=== PATIENT | female | born 1970 | race Caucasian/White ===

== ENCOUNTER 2017-08-05 10:51 | Emergency (ER) | payer SELFPAY ==
--- OUTSIDE RECORDS SUMMARY | 2017-08-05 10:53 | XMS REPORT ---
:1970 Author [facility] Address [address] [place] [address] Care Team Providers Name Role Phone CAMRON NICHOLE Unavailable Unavailable Problems This patient has no known problems. Allergies, Adverse Reactions, Alerts This patient has no known allergies or adverse reactions. Medications This patient has no known medications. Results Test Description Test Time Test Comments Text Results Atomic Results Result Comments POCT-GLUCOSE METER 2016-10-10 17:56:00 Test Item Value Reference Range Comments POC-GLUCOSE METER (BEAKER) (test 110 mg/dL 70-110 TESTED AT [address] otrr=4630) [facility] [address] POCT-GLUCOSE [id number] 11:14:00 Test Item Value Reference Range Comments POC-GLUCOSE METER (BEAKER) 113 mg/dL 70-110 TESTED AT [address] (test uclg=5322) [facility] [address] POCT-GLUCOSE [id number] 07:23:00 Test Item Value Reference Range Comments POC-GLUCOSE METER (BEAKER) 120 mg/dL 70-110 TESTED AT [address] (test qtmh=1115) [facility] [address] POCT-GLUCOSE [id number] 21:57:00 Test Item Value Reference Range Comments POC-GLUCOSE METER (BEAKER) 209 mg/dL 70-110 TESTED AT [address] (test sjby=0733) [facility] [address] POCT-GLUCOSE [id number] 17:08:00 Test Item Value Reference Range Comments POC-GLUCOSE METER (BEAKER) 282 mg/dL 70-110 TESTED AT [address] (test mqts=7886) [facility] [address] POCT-GLUCOSE [id number] 13:22:00 Test Item Value Reference Range Comments POC-GLUCOSE METER (BEAKER) 279 mg/dL 70-110 TESTED AT [address] (test efyv=3439) [facility] [address] HEMOGLOBIN [id number] 11:00:00 Test Item Value Reference Range Comments HEMOGLOBIN A1C (BINA) (test dnmy=492) 11.4 % 4.3-6.1 POCT-GLUCOSE [id number] 07:37:00 Test Item Value Reference Range Comments POC-GLUCOSE METER ([facility]) 216 mg/dL 70-110 TESTED AT [address] (test bvcg=3555) [facility] [address] CREATINE KINASE (CK), TOTAL AND [id number] 05:54:00 Test Item Value Reference Range Comments CREATINE KINASE TOTAL ([facility]) (test tnge=004) 54 U/L 29-200 CREATINE KINASE-MB ([facility]) (test nswk=860) 0.7 ng/mL 0.0-6.6 CREATINE KINASE-MB INDEX ([facility]) (test fpng=095) 1.3 % Effective 03/16/2014: CK-MB Reference Range ChangeNew: 0.0-6.6 Previous: 0.0- 4.9CK-MB Reference Range:<6.7 Normal6.7-10.0 Borderline>10.0 AbnormalTROPONIN [id number] 05:52:00 Test Item Value Reference Range Comments TROPONIN I ([facility]) (test ijos=094) < ng/mL 0.00-0.03 Effective 03/16/2014: Reference Range ChangeNew: 0.00-0.03 Previous 0.00- 0.15Troponin I (TnI) levels must be interpreted in the context of the presenting symptoms and the clinical findings. Elevated TnI levels indicate myocardial damage, but are not specific for ischemic heart disease. Elevated TnI levels are seen in patients with other cardiac conditions (including myocarditis and congestive heartfailure), and slight TnI elevations occur in patients with other conditions, including sepsis, renalfailure, acidosis, acute neurological disease, and persistent tachyarrhythmia.TSH/FREE T4 IF [id number] 02:58:00 Test Item Value Reference Range Comments THYROID STIMULATING HORMONE ([facility]) (test 2.72 uIU/mL 0.35-4.94 zwtn=577) CBC W/PLT COUNT & AUTO [id number] 00:57:00 Test Item Value Reference Range Comments WHITE BLOOD CELL COUNT (BEAKER) (test anqx=857) 6.4 K/ L 4.0-10.0 RED BLOOD CELL COUNT (BEAKER) (test msix=235) 4.29 M/ L 4.00-5.00 HEMOGLOBIN (BEAKER) (test dldw=759) 13.1 GM/DL 12.0-15.0 HEMATOCRIT (BEAKER) (test ylma=051) 38.9 % 36.0-45.0 MEAN CORPUSCULAR VOLUME (BEAKER) (test weby=865) 90.6 fL 82.0-99.0 MEAN CORPUSCULAR HEMOGLOBIN (BEAKER) (test 30.6 pg 27.0-33.0 czly=054) MEAN CORPUSCULAR HEMOGLOBIN CONC (BEAKER) (test 33.8 GM/DL 32.0-36.0 wplh=672) RED CELL DISTRIBUTION WIDTH (BEAKER) (test 12.1 % 10.3-14.2 wxjc=355) PLATELET COUNT (BEAKER) (test qbsd=140) 158 K/CU MM 150-430 MEAN PLATELET VOLUME (BEAKER) (test cinr=635) 9.3 fL 6.5-10.5 NUCLEATED RED BLOOD CELLS (BEAKER) (test 0 /100 WBC 0-0 ugbz=106) NEUTROPHILS RELATIVE PERCENT (BEAKER) (test 50 % oukr=634) LYMPHOCYTES RELATIVE PERCENT (BEAKER) (test 38 % zxly=527) MONOCYTES RELATIVE PERCENT (BEAKER) (test 7 % wrpc=065) EOSINOPHILS RELATIVE PERCENT (BEAKER) (test 5 % yylp=963) BASOPHILS RELATIVE PERCENT (BEAKER) (test 1 % mwxs=649) NEUTROPHILS ABSOLUTE COUNT (BEAKER) (test 3.18 K/ L 1.80-8.00 soqg=971) LYMPHOCYTES ABSOLUTE COUNT (BEAKER) (test 2.42 K/ L 1.48-4.50 gsnu=275) MONOCYTES ABSOLUTE COUNT (BEAKER) (test 0.46 K/ L 0.00-1.30 efov=723) EOSINOPHILS ABSOLUTE COUNT (BEAKER) (test 0.32 K/ L 0.00-0.50 lrin=871) BASOPHILS ABSOLUTE COUNT (BEAKER) (test 0.04 K/ L 0.00-0.20 whiy=151) 0.000.700.000.000.000.000.000.000.000.000.000.000.000.000.000.000.000.00COMPREHE NSIVE METABOLIC [id number] 00:55:00 Test Item Value Reference Range Comments TOTAL PROTEIN (BEAKER) 5.8 gm/dL 6.0-8.3 (test atpw=005) ALBUMIN (BEAKER) (test 3.4 g/dL 3.5-5.0 xgev=4466) ALKALINE PHOSPHATASE 76 U/L 40-150 (BEAKER) (test wawc=067) BILIRUBIN TOTAL (BEAKER) 0.4 mg/dL 0.2-1.2 (test joil=544) SODIUM (BEAKER) (test 140 meq/L 136-145 voma=781) POTASSIUM (BEAKER) (test 4.0 meq/L 3.5-5.1 roou=706) CHLORIDE (BEAKER) (test 104 meq/L 98-107 zqgy=480) CO2 (BEAKER) (test 28 meq/L 22-29 qegl=281) BLOOD UREA NITROGEN 16 mg/dL 7-21 (BEAKER) (test gayv=599) CREATININE (BEAKER) (test 0.82 mg/dL 0.57-1.25 qksh=993) GLUCOSE RANDOM (BEAKER) 287 mg/dL 70-105 (test yvce=284) CALCIUM (BEAKER) (test 8.2 mg/dL 8.4-10.2 jgdh=724) AST (SGOT) (BEAKER) (test 5 U/L 5-34 ydni=513) ALT (SGPT) (BEAKER) (test 163 U/L 6-55 wcyy=578) EGFR (BEAKER) (test 75 mL/min/1.73 sq m ESTIMATED GFR IS NOT nqki=0195) ACCURATE CREATININE CLEARANCE IN PREDICTING GLOMERULAR FILTRATION RATE. ESTIMATED GFR IS NOT APPLICABLE FOR DIALYSIS PATIENTS. CREATINE KINASE (CK), TOTAL AND [id number] 00:50:00 Test Item Value Reference Range Comments CREATINE KINASE TOTAL (BEAKER) (test xbum=079) 67 U/L 29-200 CREATINE KINASE-MB (BEAKER) (test stor=449) 0.9 ng/mL 0.0-6.6 CREATINE KINASE-MB INDEX (BEAKER) (test btli=394) 1.3 % Effective 03/16/2014: CK-MB Reference Range ChangeNew: 0.0-6.6 Previous: 0.0- 4.9CK-MB Reference Range:<6.7 Normal6.7-10.0 Borderline>10.0 AbnormalTROPONIN [id number] 00:50:00 Test Item Value Reference Range Comments TROPONIN I (BEAKER) (test ssiw=909) < ng/mL 0.00-0.03 Effective 03/16/2014: Reference Range ChangeNew: 0.00-0.03 Previous 0.00- 0.15Troponin I (TnI) levels must be interpreted in the context of the presenting symptoms and the clinical findings. Elevated TnI levels indicate myocardial damage, but are not specific for ischemic heart disease. Elevated TnI levels are seen in patients with other cardiac conditions (including myocarditis and congestive heartfailure), and slight TnI elevations occur in patients with other conditions, including sepsis, renalfailure, acidosis, acute neurological disease, and persistent tachyarrhythmia.B-TYPE NATRIURETIC FACTOR ( BNP)2016-10-09 00:45:00 Test Item Value Reference Range Comments B-TYPE NATRIURETIC PEPTIDE (BEAKER) (test raie=666) 97 pg/mL 0-100 [id number] 00:42:00 Test Item Value Reference Range Comments PHOSPHORUS (BEAKER) (test xrwg=550) 4.1 mg/dL 2.3-4.7 [id number] 00:42:00 Test Item Value Reference Range Comments MAGNESIUM (BEAKER) (test ibck=102) 1.8 mg/dL 1.6-2.6 LIPID [id number] 00:42:00 Test Item Value Reference Range Comments TRIGLYCERIDES (BEAKER) (test spcl=987) 165 mg/dL CHOLESTEROL (BEAKER) (test lxpu=995) 172 mg/dL HDL CHOLESTEROL (BEAKER) (test ttnc=463) 48 mg/dL LDL CHOLESTEROL CALCULATED (BEAKER) (test 91 mg/dL naxc=777) Triglyceride Reference Range: Low Risk <150 Borderline 150- 199 High Risk 200-499 Very High Risk >=500Cholesterol Reference Range: Low Risk <200 Borderline 200-239 High Risk > 240HDL Cholesterol Reference Range: Low Risk >=60 High Risk <40LDL Cholesterol Reference Range: Optimal <100 Near Optimal 100-129 Borderline 130-159 High 160-189 Very High >=190POCT-GLUCOSE [id number] 00:01:00 Test Item Value Reference Range Comments POC-GLUCOSE METER (BEAKER) 273 mg/dL 70-110 TESTED AT [address] (test wqnr=5909) [facility] [id number]
--- OUTSIDE RECORDS SUMMARY | 2017-08-05 10:53 | XMS REPORT | Clinical Summary ---
:1970 Author Organization [facility] Address [address] [place] [address] Phone Care Team Providers Name Role Phone Unavailable Primary Care Provider Unavailable Allergies Active Allergy Reactions Severity Noted Date Comments Cephalexin Anaphylaxis High 10/08/2016 THROAT SWOLLEN Penicillins Other (See Comments) High 10/08/2016 QUIT BREATHING Adhesive Rash Low 10/08/2016 REDNESS, BASS Current Medications Prescription Sig. Disp. Refills Start Date End Date Status buPROPion (WELLBUTRIN Take 150 mg by mouth 2 Active SR) 150 MG 12 hr (two) times daily. tablet nitroglycerin Place 0.4 mg under the Active (NITROSTAT) 0.4 MG SL tongue every 5 (five) tablet minutes as needed for Chest pain Put 1 pill under tongue every 5min as needed for chest pain.No more than 3 doses in 15min.Call 911 if pain is unrelieved 5min after 1st dose . gabapentin (NEURONTIN) Take 100 mg by mouth 3 Active 100 MG capsule (three) times daily. metoprolol (LOPRESSOR) Take 50 mg by mouth 2 Active 50 MG tablet (two) times daily. losartan (COZAAR) 50 Take 50 mg by mouth Active MG tablet daily Patient takes 1 and 1/2 tab daily . isosorbide mononitrate Take 30 mg by mouth Active (IMDUR) 30 MG 24 hr daily. tablet insulin glargine Inject 60 Units Active (LANTUS) 100 unit/mL subcutaneously 2 (two) injection times daily Use as directed . INSULIN LISPRO Inject subcutaneously. Active (HUMALOG SUBQ) aspirin 81 MG EC Take 81 mg by mouth Active tablet daily. Active Problems Problem Noted Date Chest pain 10/08/2016 Type 2 diabetes mellitus with diabetic neuropathy, with long-term current 03/2017 use of insulin (HCC) Essential hypertension 10/08/2016 H/O tobacco use, presenting hazards to health 10/08/2016 Morbid obesity (HCC) 10/08/2016 Encounters Date Type Specialty Care Team Description 10/08/2016 - Hospital Encounter Cardiology [place], Chest pain, 10/10/2016 MD Josh unspecified Jaylyn, type;Essential MD Darnell hypertension;H/O Geno Ratliff tobacco use, MD Kristian presenting hazards to health;Morbid obesity, unspecified obesity type (HCC);Type 2 diabetes mellitus with diabetic neuropathy, with long-term current use of insulin (HCC) 10/08/2016 Orders Only General Internal Medicine after 08/04/2016 Family History Medical History Relation Name Comments Arthritis Father Heart disease Father Hypertension Father Kidney disease Father Cancer Maternal Aunt Cancer Maternal Uncle Arthritis Mother Diabetes Mother Heart disease Mother Hypertension Mother Relation Name Status Comments Father Maternal Aunt Maternal Uncle Mother Social History Tobacco Use Types Packs/Day Years Used Date Former Smoker 1 1 Alcohol Use Drinks/Week oz/Week Comments No Sex Assigned at Date Recorded Not on file Last Filed Vital Signs Vital Sign Reading Time Taken Blood Pressure 147/72 10/10/2016 3:18 PM CDT Pulse 65 10/10/2016 3:18 PM CDT Temperature 36.7 C (98.1 F) 10/10/2016 3:18 PM CDT Respiratory Rate 20 10/10/2016 3:18 PM CDT Oxygen Saturation 97% 10/10/2016 3:18 PM CDT Inhaled Oxygen Concentration - - Weight 136.7 kg (301 lb 6.4 oz) 10/10/2016 7:13 AM CDT Height 162.6 cm (5' 4") 10/08/2016 9:21 PM CDT Body Mass Index 51.74 10/10/2016 7:13 AM CDT Plan of Treatment Not on file Results EKG-SCANNED (10/11/2016 2:41 PM)RHYTHM STRIP - SCAN (10/11/2016 2:41 PM)POC- Glucose meter (10/10/2016 5:54 PM)Only the most recent of8 resultswithin the time period is included. Component Value Ref Range POC-Glucose Meter 110Comment: TESTED AT [address] 70 - 110 mg/dL [address] Specimen Performing Laboratory Blood [facility] [address] [address] [place] myocardial perfusion SPECT, pharm(Lexiscan) (10/10/2016 12:57 PM) Specimen Performing Laboratory [facility] Narrative FINAL REPORT PROCEDURE:2-Day Stress/Rest MYOCARDIAL PERFUSION SPECT with regadenoson\\XA9\\ CPT CODE:85423 INDICATION:Chest Pain HISTORY:Cardiac risk factors: Diabetes, HTN, Obesity, Tobacco Use. Other cardiovascular history: No reported CAD. Recent cardiac symptoms: Chest Pain. Current cardiovascular-related medications: Aspirin, Cozaar, Imdur, Lopressor. PROTOCOL:32.4 mCi of Tc-99m sestamibi was injected iv at expected peak pharmacologic effect, and gated SPECT (tomographic) images were obtained. On a separate day, 32.3 mCi of Tc-99m sestamibi was injected iv at rest, and SPECT images were obtained. PRELIMINARY STRESS TEST DATA FROM NONINVASIVE CARDIOLOGY: Pharmacologic stress was by 10-second iv infusion of 0.4 mg of regadenoson. Radiotracer was injected 30 seconds after start of stress. Heart rate was 65 beats/min at rest and 86 beats/min (49 % of MPHR) at tracer injection. BP was 142/73 mmHg at rest and 134/58 mmHg at tracer injection. Stress was stopped for predetermined endpoint. The patient experienced no symptoms; treatment was not required. Preliminary ECG evaluation revealed sinus rhythm at rest and no ischemic changes with stress. (Final ECG interpretation and other stress and monitoring data are reported separately by Cardiology.) IMAGING FINDINGS:Study quality is good. Images obtained after rest and stress injections show normal tracer distribution. LV and RV volumes appear normal. Gated images obtained at rest after stress show normal LV wall motion and thickening. QGS LVEF is 62%. IMPRESSION: 1. Normal study.2. Appropriate pharmacologic stress. 3. Normal myocardial perfusion.4. Normal resting LV function.5. Normal extracardiac tracer distribution.6. No previous [facility] study for comparison. NONINVASIVE RISK STRATIFICATION: The above findings are considered low risk (<1% annual mortality rate) based on the following criterion: - Normal or small myocardial perfusion defect at rest or with stress (JACC. 2012;59(9):857-81.) Signed: Howard Szymanski MD Report Verified Date/Time:10/10/2016 16:32:44 Reading Location: [address] Reading Room Procedure Note Interface, External Ris In - 10/10/2016 4:34 PM CDT FINAL REPORT PROCEDURE: 2-Day Stress/Rest MYOCARDIAL PERFUSION SPECT with regadenoson\\XA9\\ CPT CODE: 91190 INDICATION: Chest Pain HISTORY: Cardiac risk factors: Diabetes, HTN, Obesity, Tobacco Use. Other cardiovascular history: No reported CAD. Recent cardiac symptoms: Chest Pain. Current cardiovascular-related medications: Aspirin, Cozaar, Imdur, Lopressor. PROTOCOL: 32.4 mCi of Tc-99m sestamibi was injected iv at expected peak pharmacologic effect, and gated SPECT (tomographic) images were obtained. On a separate day, 32.3 mCi of Tc-99m sestamibi was injected iv at rest, and SPECT images were obtained. PRELIMINARY STRESS TEST DATA FROM NONINVASIVE CARDIOLOGY: Pharmacologic stress was by 10-second iv infusion of 0.4 mg of regadenoson. Radiotracer was injected 30 seconds after start of stress. Heart rate was 65 beats/min at rest and 86 beats/min (49 % of MPHR) at tracer injection. BP was 142/73 mmHg at rest and 134/58 mmHg at tracer injection. Stress was stopped for predetermined endpoint. The patient experienced no symptoms; treatment was not required. Preliminary ECG evaluation revealed sinus rhythm at rest and no ischemic changes with stress. (Final ECG interpretation and other stress and monitoring data are reported separately by Cardiology.) IMAGING FINDINGS: Study quality is good. Images obtained after rest and stress injections show normal tracer distribution. LV and RV volumes appear normal. Gated images obtained at rest after stress show normal LV wall motion and thickening. QGS LVEF is 62%. IMPRESSION: 1. Normal study. 2. Appropriate pharmacologic stress. 3. Normal myocardial perfusion. 4. Normal resting LV function. 5. Normal extracardiac tracer distribution. 6. No previous [facility] study for comparison. NONINVASIVE RISK STRATIFICATION: The above findings are considered low risk (<1% annual mortality rate) based on the following criterion: - Normal or small myocardial perfusion defect at rest or with stress (JACC. 2012;59(9):857-81.) Signed: Howard Szymanski MD Report Verified Date/Time: 10/10/2016 16:32:44 Reading Location: [place] [id number] [facility] Reading Room Treadmill tolerance(Non-Nuclear Treadmill) (10/09/2016 10:26 AM) Specimen Performing Laboratory [facility] Narrative Protocol Name Regadenoson Time In Exercise Phase 00:01:00 Max. Systolic BP 134 mmHg Max Diastolic BP 58 mmHg Max Heart Rate 86 BPM Max Predicted Heart Rate 175 BPM Reason For Termination Predetermined end point Reason for Test Chest Pain Target HR Formula (220 - Age)*100% Arrhythmias none Resting ECG Normal sinus rhythm ST Changes No Significant Changes Overall Impression Indeterminate due to pharmacological stress Chest Pain none HR Response To Exercise BP Response To Exercise ASA COZAAR Imdur LOPRESSOR Confirmed by fellow Nayla Alfonso ([id number]) on 10/09/2016 10:52:26 AM Confirmed by Chuckie MARTÍNEZ MICHAEL ([id number]) on 10/10/2016 6:47:20 AM Procedure Note Interface, External Ris In - 10/10/2016 6:47 AM CDT Protocol Name Regadenoson Time In Exercise Phase 00:01:00 Max. Systolic BP 134 mmHg Max Diastolic BP 58 mmHg Max Heart Rate 86 BPM Max Predicted Heart Rate 175 BPM Reason For Termination Predetermined end point Reason for Test Chest Pain Target HR Formula (220 - Age)*100% Arrhythmias none Resting ECG Normal sinus rhythm ST Changes No Significant Changes Overall Impression Indeterminate due to pharmacological stress Chest Pain none HR Response To Exercise BP Response To Exercise ASA COZAAR Imdur LOPRESSOR Confirmed by fellow Nayla Alfonso ([id number]) on 10/09/2016 10:52:26 AM Confirmed by Chuckie MARTÍNEZ MICHAEL ([id number]) on 10/10/2016 6:47:20 AM Troponin I (10/09/2016 4:56 AM)Only the most recent of2 resultswithin the time period is included. Component Value Ref Range Troponin I <0.01 0.00 - 0.03 ng/mL Specimen Performing Laboratory Blood - Line, Venous [facility] [address] [address] Narrative Effective 03/16/2014: Reference Range Change New: 0.00-0.03 Previous 0.00-0.15 Troponin I (TnI) levels must be interpreted in the context of the presenting symptoms and the clinical findings. Elevated TnI levels indicate myocardial damage, but are not specific for ischemic heart disease. Elevated TnI levels are seen in patients with other cardiac conditions (including myocarditis and congestive heart failure), and slight TnI elevations occur in patients with other conditions, including sepsis, renal failure, acidosis, acute neurological disease, and persistent tachyarrhythmia. Creatine Kinase (CK), Total and MB (10/09/2016 4:56 AM)Only the most recent of2 resultswithin the time period is included. Component Value Ref Range Total CK 54 29 - 200 U/L CK-MB 0.7 0.0 - 6.6 ng/mL MB Relative Index 1.3 % Specimen Performing Laboratory Blood - Line, Venous [address] [address] Narrative Effective 03/16/2014: CK-MB Reference Range Change New: 0.0-6.6Previous: 0.0-4.9 CK-MB Reference Range: <6.7Normal 6.7-10.0Borderline >10.0 Abnormal Hemoglobin A1c (10/09/2016 12:12 AM) Component Value Ref Range Hemoglobin A1C 11.4 (H) 4.3 - 6.1 % Specimen Performing Laboratory Blood - Line, Venous [address] [address] TSH/Free T4 If Indicated (10/09/2016 12:11 AM) Component Value Ref Range TSH 2.72 0.35 - 4.94 uIU/mL Specimen Performing Laboratory Blood - Line, Venous [address] [address] CBC with platelet count + automated diff (10/09/2016 12:11 AM) Component Value Ref Range WBC 6.4 4.0 - 10.0 K/L RBC 4.29 4.00 - 5.00 M/L Hemoglobin 13.1 12.0 - 15.0 GM/DL Hematocrit 38.9 36.0 - 45.0 % MCV 90.6 82.0 - 99.0 fL MCH 30.6 27.0 - 33.0 pg MCHC 33.8 32.0 - 36.0 GM/DL RDW 12.1 10.3 - 14.2 % Platelets 158 150 - 430 K/CU MM MPV 9.3 6.5 - 10.5 fL nRBC 0 0 - 0 /100 WBC % Neutros 50 % % Lymphs 38 % % Monos 7 % % Eos 5 % % Baso 1 % # Neutros 3.18 1.80 - 8.00 K/L # Lymphs 2.42 1.48 - 4.50 K/L # Monos 0.46 0.00 - 1.30 K/L # Eos 0.32 0.00 - 0.50 K/L # Baso 0.04 0.00 - 0.20 K/L Specimen Performing Laboratory Blood - Line, [address] [address] Narrative 0.00 0.70 0.00 0.00 0.00 0.00 0.00 0.00 0.00 0.00 0.00 0.00 0.00 0.00 0.00 0.00 0.00 0.00 CBC with platelet count + automated diff (10/09/2016 12:11 AM) Specimen Performing Laboratory Blood Narrative The following orders were created for panel order CBC with platelet count + automated diff. Procedure Abnormality Status --------- ------ CBC with platelet count ...[[id number]]Final result Manual Differential[[id number]] Please view results for these tests on the individual orders. Phosphorus (10/09/2016 12:11 AM) Component Value Ref Range Phosphorus 4.1 2.3 - 4.7 mg/dL Specimen Performing Laboratory Blood - Line, [address] [address] B-type Natriuretic Factor (BNP) (10/09/2016 12:11 AM) Component Value Ref Range BNP 97 0 - 100 pg/mL Specimen Performing Laboratory Blood - Line, [address] [address] Magnesium (10/09/2016 12:11 AM) Component Value Ref Range Magnesium 1.8 1.6 - 2.6 mg/dL Specimen Performing Laboratory Blood - Line, [address] [address] Lipid panel (10/09/2016 12:11 AM) Component Value Ref Range Triglycerides 165 mg/dL Cholesterol 172 mg/dL HDL 48 mg/dL LDL Calculated 91 mg/dL Specimen Performing Laboratory Blood - Line, Venous [address] [address] Narrative Triglyceride Reference Range: Low Risk <150 [id number] High Risk 200-499 Very High Risk>=500 Cholesterol Reference Range: Low Risk <200 Mlexewjnzc520-670 High Risk>240 HDL Cholesterol Reference Range: Low Risk >=60 High Risk <40 LDL Cholesterol Reference Range: Optimal<100 Near [id number] Xqnoanhzqu875-968 Itdw396-396 Very High >=190 Comprehensive metabolic panel (10/09/2016 12:11 AM) Component Value Ref Range Protein, Total 5.8 (L) 6.0 - 8.3 gm/dL Albumin 3.4 (L) 3.5 - 5.0 g/dL Alkaline Phosphatase 76 40 - 150 U/L Total Bilirubin 0.4 0.2 - 1.2 mg/dL Sodium 140 136 - 145 meq/L Potassium 4.0 3.5 - 5.1 meq/L Chloride 104 98 - 107 meq/L CO2 28 22 - 29 meq/L BUN 16 7 - 21 mg/dL Creatinine 0.82 0.57 - 1.25 mg/dL Glucose 287 (H) 70 - 105 mg/dL Calcium 8.2 (L) 8.4 - 10.2 mg/dL AST 5 5 - 34 U/L ALT 163 (H) 6 - 55 U/L EGFR 75Comment: ESTIMATED GFR IS NOT ACCURATE mL/min/1.73 sq m CREATININE CLEARANCE IN PREDICTING GLOMERULAR FILTRATION RATE. ESTIMATED GFR IS NOT APPLICABLE FOR DIALYSIS PATIENTS. Specimen Performing Laboratory Blood - Line, Venous [address] [address] ECG 12 lead (10/08/2016 11:40 PM) Specimen Performing Laboratory [employer] MUSE Narrative Ventricular Rate 60 BPM Atrial Rate 60 BPM P-R Interval 180 ms QRS Duration 86 ms Q-T Interval 470 ms QTC Calculation(Bazett) 470 ms P Brandon 41 degrees R Brandon 31 degrees T Brandon 41 degrees Normal sinus rhythm Normal ECG No previous ECGs available Confirmed by Chuckie MARTÍNEZ MICHAEL ([id number]) on 10/09/2016 7:22:58 AM Procedure Note Interface, External Ris In - 10/09/2016 7:23 AM CDT Ventricular Rate 60 BPM Atrial Rate 60 BPM P-R Interval 180 ms QRS Duration 86 ms Q-T Interval 470 ms QTC Calculation(Bazett) 470 ms P Brandon 41 degrees R Brandon 31 degrees T Brandon 41 degrees Normal sinus rhythm Normal ECG No previous ECGs available Confirmed by Chuckie MARTÍNEZ MICHAEL ([id number]) on 10/09/2016 7:22:58 AM after 08/04/2016
[2017-08-05] MEDS ORDERED: NA CHLORIDE 0.9% 1,000 ML ONE ×2 (11:27→13:37)
[2017-08-05] MEDS ORDERED: MORPHINE 10 MG/ML VIAL ONE (11:27)
[2017-08-05] MEDS ORDERED: ONDANSETRON 4 MG/2 ML VIAL ONE ×2 (11:27→11:55)
[2017-08-05] MEDS ORDERED: FAMOTIDINE 20 MG/2 ML VIAL IV ONE (11:27)
[2017-08-05 11:45] LABS: Absolute Lymphocytes (CBC) 2.1 K/uL (0.7-4.9); Absolute Monocytes 0.5 K/uL (0.1-1.3); Absolute Neutrophil 4.7 K/uL (1.8-8.0); Basophils % 3.1 % (0-1.3); Eosinophils % 4.6 % (0-4.4); Hematocrit 43.1 % (36.0-45.0); Lymphocytes % 27.2 % (15.3-44.8); MCH 29.3 pg (27.0-35.0); MPV 10.2 fL (7.6-11.3); Monocytes % 5.8 % (3.3-12.3); RBC Red Blood Cell Count 5.07 M/uL (3.86-4.86)
[2017-08-05 11:51] LABS: Bicarbonate 27 mEq/L (21-31); Glucose Level 237 mg/dL (65-120); Lipase 20 U/L (22-51); Sodium Level 137 mEq/L (135-145)
[2017-08-05 11:54] LABS: Glomerular Filtration Rate > 60 mL/min (>60)
[2017-08-05 12:02] LABS: ALT/SGPT 29 IU/L (10-60); AST/SGOT 23 IU/L (10-42); Alkaline Phosphatase 67 IU/L (42-121); Amylase Level 27 U/L (28-100); BUN Blood Urea Nitrogen 14 mg/dL (6-20); Bilirubin Direct 0.1 mg/dL (0-0.2); Bilirubin Total 0.5 mg/dL (0.3-1.2); Glomerular Filtration Rate > 90 mL/min (=/>90); Protein, Total 6.8 g/dL (6.0-8.3)
[2017-08-05 12:08] LABS: Urine Bacteria >50 /HPF (<20); Urine Culture Reflex Order REFLEXED; Urine RBC <5 /HPF (NONE SEEN)
[2017-08-05 12:09] LABS: Urine Blood NEGATIVE (NEG); Urine Glucose NEGATIVE (NEG); Urine Protein NEGATIVE (NEG); Urine Specific Gravity 1.025 (1.005-1.030); Urine pH 5.5 (5.0-7.0)
[2017-08-05 13:04] LABS: Blood Morphology Comment NOT SEEN (NOT SEEN); Platelet Estimate ADEQ; Urine White Blood Cell Casts OK
--- NOTE | 2017-08-05 14:26 | RAD REPORT ---
EXAM DESCRIPTION: CT - Abdomen Pelvis W Contrast - 08/05/2017 2:15 pm CLINICAL HISTORY: Vomiting, abdominal pain, history of hernia, history of hysterectomy cholecystecto my COMPARISON: CT July 19 TECHNIQUE: Biphasic, helical CT imaging of the abdomen and pelvis was performed following 100 ml non -ionic IV contrast. Oral contrast was given. All CT scans are performed using dose optimization technique as appropriate and may include automated exposure control or mA/KV adjustment according to patient size. FINDINGS: No suspicious findings in the lung bases. No pericardial effusion. The liver, spleen, and pancreas show no suspicious findings. Liver attenuation is borderline fatty in filtrated. Cholecystectomy clips are present with no abnormal biliary tree dilatation. Symmetric renal function is seen with no hydronephrosis or suspicious renal mass. No pyelonephritis o r acute renal parenchymal process. Mild capsule nodularity has not changed. No suspicious adrenal fin ding. Urinary bladder is mostly contracted. No acute bladder finding suspected. Uterus is absent. Ova dhaval are absent or atrophic. No acute adnexal process. No gastric dilatation or gastric wall thickening. Moderate stool volume in the colon. Minimal colonic diverticulosis. No acute GI process seen. No free air, free fluid or inflammatory stranding. No bu lky lymphadenopathy, omental thickening or mass lesion. The patient's known large umbilical [address] hernia has not changed in size. On today's examination a small bowel loop extends into the hernia . No wall thickening or edema. No congestion or edema of the herniated fat. No suspicious bony findings. IMPRESSION: No bowel obstruction, free air or surgically emergent finding. No appendicitis. The patient's known large umbilical hernia contains a short segment of small bowel. No edema or wall thickening of the bowel and no congestion or edema of the herniated fat. Acute significance of this h ernia is doubtful.
--- NOTE | 2017-08-05 15:07 | ER ---
Nurse's Notes [facility] Name: Tami Oliver Age: 47 yrs Sex: Female : 1970 Arrival Date: 08/05/2017 Time: 10:54 Bed 6 Private MD: Diagnosis: Vomiting;Abdominal tenderness;Ventral hernia;Type 2 diabetes mellitus;Obesity, unspecified Presentation: 08/05 10:57 Presenting complaint: Patient states: this morning, i started vomiting and i have a hj huge abdominal hernia and its hurting so bad; reports fever last night. Transition of care: patient was not received from another setting of care. Onset of symptoms was August 05, 2017. Care prior to arrival: None. 10:57 Method Of Arrival: Ambulatory 10:57 Acuity: MARGIE 3 hj Triage Assessment: 10:59 General: Appears in no apparent distress. uncomfortable, Behavior is cooperative, hj appropriate for age, anxious, crying. Pain: Complains of pain in abdomen. GI: Reports lower abdominal pain, upper abdominal pain, nausea, vomiting. 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 - Family history:: not pertinent. - Social history:: Smoking status: Patient/guardian denies using tobacco. Screenin:38 Abuse screen: Denies threats or abuse. Denies injuries from another. Nutritional ch screening: No deficits noted. Tuberculosis screening: No symptoms or risk factors identified. Fall Risk None identified. Assessment: 11:00 GI: Abdomen is non-distended. hj 11:38 Reassessment: Patient appears in no apparent distress at this time. pt vomited the ch contrast, pt medicated for nausea and will try to drink again in 10 min. General: Appears in no apparent distress. uncomfortable, Behavior is calm, cooperative, appropriate for age. Neuro: No deficits noted. Respiratory: Airway is patent Respiratory effort is even, unlabored, Breath sounds are clear bilaterally. GI: Abdomen is round non-distended, obese, Bowel sounds present X 4 quads. Abd is soft X 4 quads Abdomen is tender to palpation in umbilical area, right lower quadrant and left lower quadrant Reports lower abdominal pain, nausea, vomiting. : No signs and/or symptoms were reported regarding the genitourinary system. Derm: Skin is pink, warm \T\ dry. 13:00 Reassessment: Patient appears in no apparent distress at this time. Patient and/or ch family updated on plan of care and expected duration. Pain level reassessed. Patient is alert, oriented x 3, equal unlabored respirations, skin warm/dry/pink. 14:43 Reassessment: Patient appears in no apparent distress at this time. No changes from previously documented assessment. Patient and/or family updated on plan of care and expected duration. Pain level reassessed. Patient is alert, oriented x 3, equal unlabored respirations, skin warm/dry/pink. pt requests more pain medication. pt ct is negative for surgical findings. erp notified, erp states he will discharge pt home, with prescription. pt and family notified of plan of care. 14:46 Reassessment: Patient appears in no apparent distress at this time. Vital Signs: 11:00 BP 165 / 72; Pulse 73; Resp 18; Temp 98.4(TE); Pulse Ox 100% on R/A; Weight 131.54 kg; Height 5 ft. 4 in. (162.56 cm); Pain 10/10; 11:38 BP 173 / 94; Pulse 63; Resp 18; Temp 98.5; Pulse Ox 99% on R/A; Pain 8/10; 13:41 BP 148 / 70; Pulse 58; Resp 17; Pulse Ox 97% on R/A; aj 14:45 BP 178 / 82; Pulse 57; Resp 14; Pulse Ox 98% on R/A; Pain 9/10; ch 11:00 Body Mass Index 49.78 (131.54 kg, 162.56 cm) ED Course: 10:54 Patient arrived in ED. mr 10:58 Triage completed. 11:00 Arm band placed on right wrist. 11:03 Ron Gee MD is Attending Physician. [facility] 11:34 Inserted saline lock: 20 gauge in right antecubital area, using aseptic technique. Blood collected. 11:37 Elizabeth Diaz, RN is Primary Nurse. ch 11:38 No apparent distress. Resting quietly. ch 11:38 Patient has correct armband on for positive identification. Placed in gown. Bed in low ch position. Call light in reach. Side rails up X2. Adult w/ patient. Pulse ox on. NIBP on. Warm blanket given. 11:38 No provider procedures requiring assistance completed. ch 14:[address] via wheelchair. sj 14:16 CT completed. Patient tolerated procedure well. Patient moved back from CT. nj 14:16 CT Abd/Pelvis - W/Contrast In Process Unspecified. EDMS 15:07 Jesus Mcdermott MD is Referral Physician. guerline 15:40 IV discontinued, intact, bleeding controlled, No redness/swelling at site. Pressure ch dressing applied. Administered Medications: 11:32 Drug: NS 0.9% 1000 ml Route: IV; Rate: 1 bolus; Site: right antecubital; aj 12:04 Follow up: IV Status: Completed infusion; IV Intake: 1000ml ch 11:32 Drug: morphine 4 mg Route: IVP; Site: right antecubital; aj 12:03 Follow up: Response: No adverse reaction; Marked relief of symptoms ch 11:33 Drug: Zofran 4 mg Route: IVP; Site: right antecubital; aj 12:03 Follow up: Response: No adverse reaction; Marked relief of symptoms ch 11:33 Drug: Pepcid 20 mg Route: IVP; Site: right antecubital; aj 12:02 Follow up: Response: No adverse reaction; Marked relief of symptoms ch 12:02 Drug: Zofran 4 mg Route: IVP; Site: right antecubital; ch 14:45 Follow up: Response: No adverse reaction; Marked relief of symptoms ch 13:41 Drug: NS 0.9% 1000 ml Route: IV; Rate: 1 bolus; Site: right antecubital; aj 14:50 Follow up: IV Status: Completed infusion; IV Intake: 1000ml ch Intake: 12:04 IV: 1000ml; Total: 1000ml. ch 14:50 IV: 1000ml; Total: 2000ml. ch Outcome: 15:07 Discharge ordered by . guerline 15:39 Discharged to home ambulatory, via wheelchair, with family. ch 15:39 Condition: stable 15:39 Discharge instructions given to patient, family, Instructed on discharge instructions, follow up and referral plans. medication usage, Demonstrated understanding of instructions, follow-up care, medications, Prescriptions given X 3. 15:40 Patient left the ED. Signatures: Dispatcher [employer] EDMS Elizabeth Diaz, RN Mikala Guzmán ch RN Ron Painter MD MD cha Rivera, Maria mr Roscoe, Jesus Isaac RN RN hj Jordan, Nathan nj Corrections: (The following items were deleted from the chart) 11:01 10:57 Presenting complaint: Patient states: this morning, i started vomiting and i have hj a huge abdominal hernia and its hurting so bad; hj 11:02 11:00 Pulse 73bpm; Resp 18bpm; Pulse Ox 100% RA; Temp 98.4F Temporal; 131.54 kg; Height hj 5 ft. 4 in.; BMI: 49.7; Pain /; hj
--- NOTE | 2017-08-05 15:07 | EDPHYS ---
Physician Documentation [facility] Name: Tami Oliver Age: 47 yrs Sex: Female : 1970 Arrival Date: 08/05/2017 Time: 10:54 Bed 6 Private MD: ED Physician Ron Gee HPI: 08/05 11:14 This 47 yrs old Female presents to ER via Ambulatory with complaints of guerline Hernia, Vomiting. 11:14 The patient presents to the emergency department with nausea, vomiting, abdominal pain, guerline of the umbilical area, right lower quadrant and left lower quadrant. Onset: The symptoms/episode began/occurred just prior to arrival, this morning. Possible causes: unknown. The symptoms are aggravated by movement, pressure, food , The symptoms are alleviated by nothing. remaining still. Associated signs and symptoms: Pertinent positives: nausea, vomiting. Severity of symptoms: At their worst the symptoms were moderate in the emergency department the symptoms are unchanged. The patient has not experienced similar symptoms in the past. 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 - Family history:: not pertinent. - Social history:: Smoking status: Patient/guardian denies using tobacco. ROS: 11:14 Constitutional: Negative for fever, chills, and weight loss, Eyes: Negative for injury, guerline pain, redness, and discharge, ENT: Negative for injury, pain, and discharge, Neck: Negative for injury, pain, and swelling, Cardiovascular: Negative for chest pain, palpitations, and edema, Respiratory: Negative for shortness of breath, cough, wheezing, and pleuritic chest pain, Back: Negative for injury and pain, : Negative for injury, bleeding, discharge, and swelling, MS/Extremity: Negative for injury and deformity, Skin: Negative for injury, rash, and discoloration, Neuro: Negative for headache, weakness, numbness, tingling, and seizure, Psych: Negative for depression, anxiety, suicide ideation, homicidal ideation, and hallucinations, Allergy/Immunology: Negative for hives, rash, and allergies, Endocrine: Negative for neck swelling, polydipsia, polyuria, polyphagia, and marked weight changes, Hematologic/Lymphatic: Negative for swollen nodes, abnormal bleeding, and unusual bruising. 11:14 Abdomen/GI: Positive for abdominal pain, nausea and vomiting, of the umbilical area, right lower quadrant and left lower quadrant. Exam: 11:14 Constitutional: This is a well developed, well nourished patient who is awake, alert, guerline and in no acute distress. Head/Face: Normocephalic, atraumatic. Eyes: Pupils equal round and reactive to light, extra-ocular motions intact. Lids and lashes normal. Conjunctiva and sclera are non-icteric and not injected. Cornea within normal limits. Periorbital areas with no swelling, redness, or edema. ENT: Nares patent. No nasal discharge, no septal abnormalities noted. Tympanic membranes are normal and external auditory canals are clear. Oropharynx with no redness, swelling, or masses, exudates, or evidence of obstruction, uvula midline. Mucous membranes moist. Neck: Trachea midline, no thyromegaly or masses palpated, and no cervical lymphadenopathy. Supple, full range of motion without nuchal rigidity, or vertebral point tenderness. No Meningismus. Chest/axilla: Normal chest wall appearance and motion. Nontender with no deformity. No lesions are appreciated. Cardiovascular: Regular rate and rhythm with a normal S1 and S2. No gallops, murmurs, or rubs. Normal PMI, no JVD. No pulse deficits. Respiratory: Lungs have equal breath sounds bilaterally, clear to auscultation and percussion. No rales, rhonchi or wheezes noted. No increased work of breathing, no retractions or nasal flaring. Back: No spinal tenderness. No costovertebral tenderness. Full range of motion. Female : Normal external genitalia. Skin: Warm, dry with normal turgor. Normal color with no rashes, no lesions, and no evidence of cellulitis. MS/ Extremity: Pulses equal, no cyanosis. Neurovascular intact. Full, normal range of motion. Neuro: Awake and alert, GCS 15, oriented to person, place, time, and situation. Cranial nerves II-XII grossly intact. Motor strength 5/5 in all extremities. Sensory grossly intact. Cerebellar exam normal. Normal gait. Psych: Awake, alert, with orientation to person, place and time. Behavior, mood, and affect are within normal limits. 11:14 Abdomen/GI: Inspection: obese Bowel sounds: normal, Palpation: moderate abdominal tenderness, Liver: no appreciated palpable abnormalities. Vital Signs: 11:00 BP 165 / 72; Pulse 73; Resp 18; Temp 98.4(TE); Pulse Ox 100% on R/A; Weight 131.54 kg; hj Height 5 ft. 4 in. (162.56 cm); Pain 10/10; 11:38 BP 173 / 94; Pulse 63; Resp 18; Temp 98.5; Pulse Ox 99% on R/A; Pain 8/10; ch 13:41 BP 148 / 70; Pulse 58; Resp 17; Pulse Ox 97% on R/A; aj 14:45 BP 178 / 82; Pulse 57; Resp 14; Pulse Ox 98% on R/A; Pain 9/10; ch 11:00 Body Mass Index 49.78 (131.54 kg, 162.56 cm) MDM: 11:03 Patient medically screened. [facility] 11:14 Data reviewed: vital signs, nurses notes, lab test result(s), EKG, radiologic studies, [facility] CT scan. 08/05 11:14 Order name: Amylase, Serum; Complete Time: 12:28 guerline 08/05 11:14 Order name: Basic Metabolic Panel; Complete Time: 12:28 guerline 08/05 11:14 Order name: CBC with Diff; Complete Time: 15:03 guerline 08/05 11:14 Order name: Creatinine for Radiology; Complete Time: 12:28 [facility] 08/05 11:14 Order name: Hepatic Function; Complete Time: 12:28 guerline 08/05 11:14 Order name: Lipase; Complete Time: 12:28 guerline 08/05 11:14 Order name: Urine Microscopic Only; Complete Time: 12:28 guerline 08/05 11:14 Order name: CT Abd/Pelvis - W/Contrast; Complete Time: 15:03 guerline 08/05 11:30 Order name: Urine Dipstick--Ancillary (enter results); Complete Time: 12:28 bd 08/05 11:47 Order name: CBC Smear Scan; Complete Time: 15:03 EDMS 08/05 12:09 Order name: Urine Culture [facility] 08/05 11:14 Order name: IV Saline Lock; Complete Time: 11:34 [facility] 08/05 11:14 Order name: Labs collected and sent; Complete Time: 11:34 [facility] 08/05 11:14 Order name: Urine Dipstick-Ancillary (obtain specimen); Complete Time: 11:34 [facility] Administered Medications: 11:32 Drug: NS 0.9% 1000 ml Route: IV; Rate: 1 bolus; Site: right antecubital; aj 12:04 Follow up: IV Status: Completed infusion; IV Intake: 1000ml 11:32 Drug: morphine 4 mg Route: IVP; Site: right antecubital; aj 12:03 Follow up: Response: No adverse reaction; Marked relief of symptoms ch 11:33 Drug: Zofran 4 mg Route: IVP; Site: right antecubital; aj 12:03 Follow up: Response: No adverse reaction; Marked relief of symptoms ch 11:33 Drug: Pepcid 20 mg Route: IVP; Site: right antecubital; aj 12:02 Follow up: Response: No adverse reaction; Marked relief of symptoms ch 12:02 Drug: Zofran 4 mg Route: IVP; Site: right antecubital; ch 14:45 Follow up: Response: No adverse reaction; Marked relief of symptoms ch 13:41 Drug: NS 0.9% 1000 ml Route: IV; Rate: 1 bolus; Site: right antecubital; aj 14:50 Follow up: IV Status: Completed infusion; IV Intake: 1000ml Disposition: 08/05/17 15:07 Discharged to Home. Impression: Vomiting, Abdominal tenderness, Ventral hernia, Type 2 diabetes mellitus, Obesity, unspecified. - Condition is Stable. - Discharge Instructions: Abdominal Pain, Adult, Type 2 Diabetes Mellitus, Adult, Nausea and Vomiting, Obesity, Nausea and Vomiting, [id number], Abdominal Pain, Adult, Smzt-kn-[id number], Type 2 Diabetes Mellitus, Adult, [id number]. - Prescriptions for Bentyl 20 mg Oral Tablet - take 1 tablet by ORAL route every 6 hours As needed; 20 tablet. Pepcid 20 mg Oral Tablet - take 1 tablet by ORAL route every 12 hours for 10 days; 20 tablet. Zofran 4 mg Oral Tablet - take 1 tablet by ORAL route every 12 hours As needed; 20 tablet. - Medication Reconciliation Form, Thank You Letter, Antibiotic Education, Prescription Opioid Use form. - Follow up: Private Physician; When: 2 - 3 days; Reason: Recheck today's complaints, Continuance of care, Re-evaluation by your physician. Follow up: Jesus Mcdermott; When: 2 - 3 days; Reason: Recheck today's complaints, Continuance of care, Re-evaluation by your physician. - Problem is new. - Symptoms have improved. Signatures: Dispatcher [employer] Elizabeth Meeks, Mikala Guzmán RN, ch, RN RN aj Anderson, Corey, MD MD cha Joaquin, Henry RN RN hj
== END 2017-08-05 15:40 | disposition home or self-care (01) ==
LOC: ER 10:51
DX: K43.9 Ventral hernia without obstruction or gangrene (principal); E11.9 Type 2 diabetes mellitus without complications; E66.9 Obesity, unspecified; R10.819 Abdominal tenderness, unspecified site; I10 Essential (primary) hypertension; Z79.4 Long term (current) use of insulin; Z88.0 Allergy status to penicillin
CPT/HCPCS: 36415; 74177; 80048; 80076; 81003; 81015; 82150; 83690; 85025; 87086; 87088; 96361; 96374; 96375; 99284; J2405; J7030; Q9967

== ENCOUNTER 2017-08-28 05:20 | Emergency (ER) | payer SELFPAY ==
--- OUTSIDE RECORDS SUMMARY | 2017-08-28 05:54 | XMS REPORT | Clinical Summary ---
:1970 Author Organization [facility] Address [address] [place] [address] Phone Care Team Providers Name Role Phone [...] 10/08/2016 Orders Only General Internal Medicine after 08/27/2016 Family History Medical History Relation Name Comments [...] Ref Range POC-Glucose Meter 110Comment: TESTED AT [address] 70 - 110 mg/dL [address] Specimen Performing Laboratory Blood [facility] [address] [address] [place] myocardial perfusion SPECT, pharm(Lexiscan) (10/10/2016 12:57 PM) Specimen Performing Laboratory [place] Narrative FINAL REPORT PROCEDURE:2-Day Stress/Rest MYOCARDIAL PERFUSION SPECT with regadenoson\\XA9\\ CPT CODE:84541 INDICATION:Chest Pain HISTORY:Cardiac risk factors: Diabetes, HTN, [...] function.5. Normal extracardiac tracer distribution.6. No previous [facility] study for comparison. NONINVASIVE RISK STRATIFICATION: The above findings are considered low risk (<1% annual mortality rate) based on the following criterion: - Normal or small myocardial perfusion defect at rest or with stress (JACC. 2012;59(9):857-81.) Signed: Howard Szymanski MD Report Verified Date/Time:10/10/2016 16:32:44 Reading Location: [address] Reading Room Procedure Note Interface, External Ris In - 10/10/2016 4:34 PM CDT FINAL REPORT PROCEDURE: 2-Day Stress/Rest MYOCARDIAL PERFUSION SPECT with regadenoson\\XA9\\ CPT CODE: 68106 INDICATION: Chest Pain HISTORY: Cardiac risk factors: [...] Normal extracardiac tracer distribution. 6. No previous [facility] study for comparison. NONINVASIVE RISK STRATIFICATION: The above findings are considered low risk (<1% annual mortality rate) based on the following criterion: - Normal or small myocardial perfusion defect at rest or with stress (JACC. 2012;59(9):857-81.) Signed: Howard Szymanski MD Report Verified Date/Time: 10/10/2016 16:32:44 Reading Location: [id number] [facility] Reading Room Treadmill tolerance(Non-Nuclear Treadmill) (10/09/2016 10:26 [...] Performing Laboratory Blood - Line, Venous [facility] [address] [address] Narrative Effective 03/16/2014: Reference Range Change New: [...] Specimen Performing Laboratory Blood - Line, Venous [address] [address] Narrative Effective 03/16/2014: CK-MB Reference Range Change New: 0.0-6.6Previous: 0.0-4.9 CK-MB Reference Range: <6.7Normal 6.7-10.0Borderline >10.0 Abnormal Hemoglobin A1c (10/09/2016 12:12 AM) Component Value Ref Range Hemoglobin A1C 11.4 (H) 4.3 - 6.1 % Specimen Performing Laboratory Blood - Line, Venous [address] [address] TSH/Free T4 If Indicated (10/09/2016 12:11 AM) Component Value Ref Range TSH 2.72 0.35 - 4.94 uIU/mL Specimen Performing Laboratory Blood - Line, Venous [address] [address] CBC with platelet count + automated diff [...] K/L Specimen Performing Laboratory Blood - Line, [address] [address] Narrative 0.00 0.70 0.00 0.00 0.00 0.00 0.00 0.00 0.00 0.00 0.00 0.00 0.00 0.00 0.00 0.00 0.00 0.00 CBC with platelet count + automated diff (10/09/2016 12:11 AM) Specimen Performing Laboratory Blood Narrative The following orders were created for panel order CBC with platelet count + automated diff. Procedure Abnormality Status --------- ------ CBC with platelet count ...[[id number]]Final result Manual Differential[[id number]] Please view results for these tests on the individual orders. Phosphorus (10/09/2016 12:11 AM) Component Value Ref Range Phosphorus 4.1 2.3 - 4.7 mg/dL Specimen Performing Laboratory Blood - Line, [address] [address] B-type Natriuretic Factor (BNP) (10/09/2016 12:11 AM) Component Value Ref Range BNP 97 0 - 100 pg/mL Specimen Performing Laboratory Blood - Line, [address] [address] Magnesium (10/09/2016 12:11 AM) Component Value Ref Range Magnesium 1.8 1.6 - 2.6 mg/dL Specimen Performing Laboratory Blood - Line, [address] [address] Lipid panel (10/09/2016 12:11 AM) Component Value Ref Range Triglycerides 165 mg/dL Cholesterol 172 mg/dL HDL 48 mg/dL LDL Calculated 91 mg/dL Specimen Performing Laboratory Blood - Line, Venous [address] [address] Narrative Triglyceride Reference Range: Low Risk <150 [id number] High Risk 200-499 Very High Risk>=500 Cholesterol Reference Range: Low Risk <200 [id number] High Risk>240 HDL Cholesterol Reference Range: Low Risk >=60 High Risk <40 LDL Cholesterol Reference Range: Optimal<100 Near [id number] [id number] Very High >=190 Comprehensive metabolic panel (10/09/2016 [...] Specimen Performing Laboratory Blood - Line, Venous [address] [address] ECG 12 lead (10/08/2016 11:40 PM) Specimen Performing Laboratory [facility] Narrative Ventricular Rate 60 BPM Atrial Rate 60 BPM P-R Interval 180 ms QRS Duration 86 ms Q-T Interval 470 ms QTC Calculation(Bazett) 470 ms P [place] 41 degrees R [place] 31 degrees T [place] 41 degrees Normal sinus rhythm Normal ECG No previous ECGs available Confirmed by Chuckie MARTÍNEZ MICHAEL ([id number]) on 10/09/2016 7:22:58 AM Procedure Note Interface, External Ris In - 10/09/2016 7:23 AM CDT Ventricular Rate 60 BPM Atrial Rate 60 BPM P-R Interval 180 ms QRS Duration 86 ms Q-T Interval 470 ms QTC Calculation(Bazett) 470 ms P [place] 41 degrees R [place] 31 degrees T [place] 41 degrees Normal sinus rhythm Normal ECG No previous ECGs available Confirmed by Chuckie MARTÍNEZ MICHAEL ([id number]) on 10/09/2016 7:22:58 AM after 08/27/2016
--- OUTSIDE RECORDS SUMMARY | 2017-08-28 05:55 | XMS REPORT ---
:1970 [facility] Address [address] [place] [address] Care Team Providers Name Role Phone CAMRON [...] (BEAKER) (test 110 mg/dL 70-110 TESTED AT [address] pymw=[id number]) [facility] [address] POCT-GLUCOSE [id number] 11:14:00 Test Item Value Reference Range Comments POC-GLUCOSE METER (BEAKER) 113 mg/dL 70-110 TESTED AT [address] (test mzjy=1874) [facility] [address] POCT-GLUCOSE [id number] 07:23:00 Test Item Value Reference Range Comments POC-GLUCOSE METER (BEAKER) 120 mg/dL 70-110 TESTED AT [address] (test tqhq=7064) [facility] [address] POCT-GLUCOSE [id number] 21:57:00 Test Item Value Reference Range Comments POC-GLUCOSE METER (BEAKER) 209 mg/dL 70-110 TESTED AT [address] (test hvpq=2503) [facility] [address] POCT-GLUCOSE [id number] 17:08:00 Test Item Value Reference Range Comments POC-GLUCOSE METER (BEAKER) 282 mg/dL 70-110 TESTED AT [address] (test rsnz=4571) [facility] [address] POCT-GLUCOSE [id number] 13:22:00 Test Item Value Reference Range Comments POC-GLUCOSE METER (BEAKER) 279 mg/dL 70-110 TESTED AT [address] (test iqxz=1034) [facility] [address] HEMOGLOBIN [id number] 11:00:00 Test Item Value Reference Range Comments HEMOGLOBIN A1C (BINA) (test qarj=163) 11.4 % 4.3-6.1 POCT-GLUCOSE [id number] 07:37:00 Test Item Value Reference Range Comments POC-GLUCOSE METER ([facility]) 216 mg/dL 70-110 TESTED AT [address] (test phav=7062) [facility] [address] CREATINE KINASE (CK), TOTAL AND [id number] 05:54:00 Test Item Value Reference Range Comments CREATINE KINASE TOTAL ([facility]) (test pjje=746) 54 U/L 29-200 CREATINE KINASE-MB ([facility]) (test klnf=991) 0.7 ng/mL 0.0-6.6 CREATINE KINASE-MB INDEX ([facility]) (test elxe=258) 1.3 % Effective 03/16/2014: CK-MB Reference Range ChangeNew: 0.0-6.6 Previous: 0.0- 4.9CK-MB Reference Range:<6.7 Normal6.7-10.0 Borderline>10.0 AbnormalTROPONIN [id number] 05:52:00 Test Item Value Reference Range Comments TROPONIN I ([facility]) (test ybhb=319) < ng/mL 0.00-0.03 Effective 03/16/2014: Reference Range [...] neurological disease, and persistent tachyarrhythmia.TSH/FREE T4 IF [id number] 02:58:00 Test Item Value Reference Range Comments THYROID STIMULATING HORMONE (ALEENA) (test 2.72 uIU/mL 0.35-4.94 dtku=191) CBC W/PLT COUNT & AUTO [id number] 00:57:00 Test Item Value Reference Range Comments WHITE BLOOD CELL COUNT (BEAKER) (test bkeb=443) 6.4 K/ L 4.0-10.0 RED BLOOD CELL COUNT (BEAKER) (test cgxu=626) 4.29 M/ L 4.00-5.00 HEMOGLOBIN (BEAKER) (test pqvd=497) 13.1 GM/DL 12.0-15.0 HEMATOCRIT (BEAKER) (test kdym=565) 38.9 % 36.0-45.0 MEAN CORPUSCULAR VOLUME (BEAKER) (test dnzw=138) 90.6 fL 82.0-99.0 MEAN CORPUSCULAR HEMOGLOBIN (BEAKER) (test 30.6 pg 27.0-33.0 hjdv=200) MEAN CORPUSCULAR HEMOGLOBIN CONC (BEAKER) (test 33.8 GM/DL 32.0-36.0 yyvs=794) RED CELL DISTRIBUTION WIDTH (BEAKER) (test 12.1 % 10.3-14.2 lsmf=690) PLATELET COUNT (BEAKER) (test cfwc=361) 158 K/CU MM 150-430 MEAN PLATELET VOLUME (BEAKER) (test ncqn=074) 9.3 fL 6.5-10.5 NUCLEATED RED BLOOD CELLS (BEAKER) (test 0 /100 WBC 0-0 zpdj=271) NEUTROPHILS RELATIVE PERCENT (BEAKER) (test 50 % fgsw=614) LYMPHOCYTES RELATIVE PERCENT (BEAKER) (test 38 % suvj=468) MONOCYTES RELATIVE PERCENT (BEAKER) (test 7 % hfeu=068) EOSINOPHILS RELATIVE PERCENT (BEAKER) (test 5 % ymrr=978) BASOPHILS RELATIVE PERCENT (BEAKER) (test 1 % qcag=496) NEUTROPHILS ABSOLUTE COUNT (BEAKER) (test 3.18 K/ L 1.80-8.00 wljb=719) LYMPHOCYTES ABSOLUTE COUNT (BEAKER) (test 2.42 K/ L 1.48-4.50 cvmk=047) MONOCYTES ABSOLUTE COUNT (BEAKER) (test 0.46 K/ L 0.00-1.30 bmwd=357) EOSINOPHILS ABSOLUTE COUNT (BEAKER) (test 0.32 K/ L 0.00-0.50 tbma=656) BASOPHILS ABSOLUTE COUNT (BEAKER) (test 0.04 K/ L 0.00-0.20 xslh=154) [id number] NSIVE METABOLIC [id number] 00:55:00 Test Item Value Reference Range Comments TOTAL PROTEIN (BEAKER) 5.8 gm/dL 6.0-8.3 (test vcsm=911) ALBUMIN (BEAKER) (test 3.4 g/dL 3.5-5.0 irip=9688) ALKALINE PHOSPHATASE 76 U/L 40-150 (BEAKER) (test bpxj=376) BILIRUBIN TOTAL (BEAKER) 0.4 mg/dL 0.2-1.2 (test lloc=174) SODIUM (BEAKER) (test 140 meq/L 136-145 yeeb=248) POTASSIUM (BEAKER) (test 4.0 meq/L 3.5-5.1 dvut=817) CHLORIDE (BEAKER) (test 104 meq/L 98-107 jlqg=242) CO2 (BEAKER) (test 28 meq/L 22-29 rtbo=316) BLOOD UREA NITROGEN 16 mg/dL 7-21 (BEAKER) (test ybkm=043) CREATININE (BEAKER) (test 0.82 mg/dL 0.57-1.25 bryp=441) GLUCOSE RANDOM (BEAKER) 287 mg/dL 70-105 (test eunt=905) CALCIUM (BEAKER) (test 8.2 mg/dL 8.4-10.2 angm=898) AST (SGOT) (BEAKER) (test 5 U/L 5-34 ogpx=113) ALT (SGPT) (BEAKER) (test 163 U/L 6-55 teal=059) EGFR (BEAKER) (test 75 mL/min/1.73 sq m ESTIMATED GFR IS NOT rhsp=1930) ACCURATE CREATININE CLEARANCE IN PREDICTING GLOMERULAR FILTRATION RATE. ESTIMATED GFR IS NOT APPLICABLE FOR DIALYSIS PATIENTS. CREATINE KINASE (CK), TOTAL AND [id number] 00:50:00 Test Item Value Reference Range Comments CREATINE KINASE TOTAL (BEAKER) (test wvju=305) 67 U/L 29-200 CREATINE KINASE-MB (BEAKER) (test eucl=373) 0.9 ng/mL 0.0-6.6 CREATINE KINASE-MB INDEX (BEAKER) (test bygn=276) 1.3 % Effective 03/16/2014: CK-MB Reference Range ChangeNew: 0.0-6.6 Previous: 0.0- 4.9CK-MB Reference Range:<6.7 Normal6.7-10.0 Borderline>10.0 AbnormalTROPONIN [id number] 00:50:00 Test Item Value Reference Range Comments TROPONIN I (BEAKER) (test wwbh=432) < ng/mL 0.00-0.03 Effective 03/16/2014: Reference Range [...] Range Comments B-TYPE NATRIURETIC PEPTIDE (BEAKER) (test ejyb=988) 97 pg/mL 0-100 [id number] 00:42:00 Test Item Value Reference Range Comments PHOSPHORUS (BEAKER) (test oryi=322) 4.1 mg/dL 2.3-4.7 [id number] 00:42:00 Test Item Value Reference Range Comments MAGNESIUM (BEAKER) (test kbkx=941) 1.8 mg/dL 1.6-2.6 LIPID [id number] 00:42:00 Test Item Value Reference Range Comments TRIGLYCERIDES (BEAKER) (test bsjb=415) 165 mg/dL CHOLESTEROL (BEAKER) (test mgml=878) 172 mg/dL HDL CHOLESTEROL (BEAKER) (test wtgd=169) 48 mg/dL LDL CHOLESTEROL CALCULATED (BEAKER) (test 91 mg/dL rvqb=110) Triglyceride Reference Range: Low Risk <150 Borderline 150- 199 High Risk 200-499 Very High Risk >=500Cholesterol Reference Range: Low Risk <200 Borderline 200-239 High Risk > 240HDL Cholesterol Reference Range: Low Risk >=60 High Risk <40LDL Cholesterol Reference Range: Optimal <100 Near Optimal 100-129 Borderline 130-159 High 160-189 Very High >=190POCT-GLUCOSE [id number] 00:01:00 Test Item Value Reference Range Comments POC-GLUCOSE METER (BEAKER) 273 mg/dL 70-110 [facility]ED [facility] [address] [facility] [address] (test oqoj=7256) [facility] [address]
[2017-08-28] MEDS ORDERED: MORPHINE 4 MG/ML SYR ONE ×2 (06:41→07:46)
[2017-08-28 06:48] LABS: Absolute Lymphocytes (CBC) 2.7 K/uL (0.7-4.9); Absolute Monocytes 0.5 K/uL (0.1-1.3); Absolute Neutrophil 4.5 K/uL (1.8-8.0); Basophils % 0.8 % (0-1.3); Eosinophils % 4.6 % (0-4.4); Lymphocytes % 33.1 % (15.3-44.8); MCH 29.1 pg (27.0-35.0); MPV 10.9 fL (7.6-11.3); Monocytes % 6.5 % (3.3-12.3); RBC Red Blood Cell Count 5.29 M/uL (3.86-4.86)
[2017-08-28 06:56] LABS: Potassium 4.1 mEq/L (3.6-5.0)
[2017-08-28 07:02] LABS: Albumin 4.1 g/dL (3.2-5.5); Bilirubin Direct 0.1 mg/dL (0-0.2); Bilirubin Total 0.7 mg/dL (0.3-1.2); Protein, Total 6.9 g/dL (6.0-8.3)
[2017-08-28 08:48] LABS: Urine Blood NEGATIVE (NEG); Urine Glucose 2+ (NEG); Urine Protein NEGATIVE (NEG); Urine pH 5.5 (5.0-7.0)
--- NOTE | 2017-08-28 09:22 | RAD REPORT ---
EXAM DESCRIPTION: CTAbdomen Pelvis W Contrast - 08/28/2017 9:06 am CLINICAL HISTORY: Abdominal pain. COMPARISON: 08/05/2017, 07/19/2017 TECHNIQUE: Biphasic CT imaging of the abdomen and pelvis was performed with 100 ml non-ionic IV cont rast. All CT scans are performed using dose optimization technique as appropriate and may include automated exposure control or mA/KV adjustment according to patient size. FINDINGS: The lung bases are clear. Mild diffuse fatty liver is seen. Cholecystectomy clips noted. The spleen, pancreas, adrenal glands a nd kidneys are within normal limits. No bowel obstruction, free air, free fluid or abscess. Focal ventral umbilical hernia is present cont aining small bowel loops without evidence of incarceration or obstruction. The appendix is normal. N o evidence of significant lymphadenopathy. Lumbosacral degenerative changes are present. IMPRESSION: No acute intra-abdominal or pelvic finding. Umbilical/ventral hernia containing fat and a loop of small intestine without evidence of incarcerati on or bowel obstruction. Fatty liver.
--- NOTE | 2017-08-28 09:38 | EDPHYS ---
Physician Documentation [facility] Name: Tami Oliver Age: 47 yrs Sex: Female : 1970 Arrival Date: 08/28/2017 Time: 05:27 Bed 20 Private MD: ED Physician Sung Lawrence HPI: 08/28 07:44 This 47 yrs old Female presents to ER via Ambulatory with complaints of jr8 Abdominal Pain. 07:44 The patient presents with abdominal pain in the left lower quadrant. Onset: The jr8 symptoms/episode began/occurred acutely, yesterday. The symptoms do not radiate. Associated signs and symptoms: none. The symptoms are described as stabbing. Modifying factors: The symptoms are alleviated by nothing, the symptoms are aggravated by movement. Severity of pain: At its worst the pain was moderate in the emergency department the pain is unchanged. The patient has not experienced similar symptoms in the past. The patient has not recently seen a physician. Patient stated that she was walking yesterday. Had walked more than usual. Noticed later had abdominal pain to LLQ. Feels sharp and tearing like. Denies fevers, n/v/d . 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 - Social history:: Smoking status: Patient/guardian denies using tobacco. ROS: 07:44 Eyes: Negative for injury, pain, redness, and discharge, ENT: Negative for injury, jr8 pain, and discharge, Neck: Negative for injury, pain, and swelling, Cardiovascular: Negative for chest pain, palpitations, and edema, Respiratory: Negative for shortness of breath, cough, wheezing, and pleuritic chest pain, Back: Negative for injury and pain, MS/Extremity: Negative for injury and deformity, Skin: Negative for injury, rash, and discoloration, Neuro: Negative for headache, weakness, numbness, tingling, and seizure. 07:44 Abdomen/GI: Positive for abdominal pain, Negative for nausea, vomiting, and diarrhea, constipation, abdominal cramps, abdominal distension, anorexia, dysphagia, hematemesis, black/tarry stool, rectal pain, rectal bleeding, bowel incontinence, flatulence. Exam: 07:44 Eyes: Pupils equal round and reactive to light, extra-ocular motions intact. Lids and jr8 lashes normal. Conjunctiva and sclera are non-icteric and not injected. Cornea within normal limits. Periorbital areas with no swelling, redness, or edema. ENT: Nares patent. No nasal discharge, no septal abnormalities noted. Tympanic membranes are normal and external auditory canals are clear. Oropharynx with no redness, swelling, or masses, exudates, or evidence of obstruction, uvula midline. Mucous membranes moist. Neck: Trachea midline, no thyromegaly or masses palpated, and no cervical lymphadenopathy. Supple, full range of motion without nuchal rigidity, or vertebral point tenderness. No Meningismus. Cardiovascular: Regular rate and rhythm with a normal S1 and S2. No gallops, murmurs, or rubs. Normal PMI, no JVD. No pulse deficits. Respiratory: Lungs have equal breath sounds bilaterally, clear to auscultation and percussion. No rales, rhonchi or wheezes noted. No increased work of breathing, no retractions or nasal flaring. Back: No spinal tenderness. No costovertebral tenderness. Full range of motion. Skin: Warm, dry with normal turgor. Normal color with no rashes, no lesions, and no evidence of cellulitis. MS/ Extremity: Pulses equal, no cyanosis. Neurovascular intact. Full, normal range of motion. Neuro: Awake and alert, GCS 15, oriented to person, place, time, and situation. Cranial nerves II-XII grossly intact. Motor strength 5/5 in all extremities. Sensory grossly intact. Cerebellar exam normal. Normal gait. 07:44 Abdomen/GI: Inspection: obese Bowel sounds: active, all quadrants, Palpation: soft, in all quadrants, mild abdominal tenderness, in the left lower quadrant, mass, is not appreciated, rebound tenderness, is not appreciated, voluntary guarding, is not appreciated, involuntary guarding, is not appreciated, no appreciated organomegaly, Indicators: McBurney's point is not tender, Gonzalez's sign is negative, Rovsing's sign is negative, Liver: no appreciated palpable abnormalities, tenderness, is not appreciated. Vital Signs: 05:36 Pulse 90; Resp 20; Temp 98.1(O); Pulse Ox 98% on R/A; Weight 135.62 kg; Height 5 ft. 4 ao in. (162.56 cm); Pain 10/10; 05:45 BP 155 / 87; ao 07:31 BP 142 / 70; Pulse 79; Resp 16; Pulse Ox 95% on R/A; Pain 10/10; em 08:45 BP 135 / 71; Pulse 80; Resp 18; Pulse Ox 99% on R/A; Pain 10/10; em 10:05 BP 135 / 68; Pulse 68; Resp 16; Temp 97.8; Pulse Ox 98% on R/A; Pain 8/10; em 05:36 Body Mass Index 51.32 (135.62 kg, 162.56 cm) ao MDM: 06:05 Patient medically screened. jr8 09:36 Differential diagnosis: bowel obstruction, diverticulitis, Mesenteric ischemia or jr8 infarction, non-specific abd pain, Pyelonephritis, Ureterolithiasis, urinary tract infection, Hernia with incarceration. Data reviewed: vital signs, nurses notes, lab test result(s), radiologic studies, CT scan, and as a result, I will discharge patient. Data interpreted: Pulse oximetry: on room air is 95 %. Interpretation: normal. Counseling: I had a detailed discussion with the patient and/or guardian regarding: the historical points, exam findings, and any diagnostic results supporting the discharge/admit diagnosis, lab results, radiology results, the need for outpatient follow up, a family practitioner, to return to the emergency department if symptoms worsen or persist or if there are any questions or concerns that arise at home. 08/28 06:50 Order name: CBC with Automated Diff; Complete Time: 06:58 EDMS 08/28 06:56 Order name: Basic Metabolic Panel; Complete Time: 07:36 EDME 08/28 06:56 Order name: Lipase; Complete Time: 07:36 EDME 08/28 07:02 Order name: Liver (Hepatic) Function; Complete Time: 07:36 EDME 08/28 07:10 Order name: Urine Dipstick--Ancillary (enter results) [facility] 08/28 07:10 Order name: Urine --Ancillary (enter results) [facility] 08/28 08:48 Order name: Urine --Ancillary; Complete Time: 08:54 EDME 08/28 08:48 Order name: Urine Dipstick-Ancillary; Complete Time: 08:54 EDME 08/28 06:06 Order name: IV Saline Lock; Complete Time: 06:29 jr8 08/28 06:06 Order name: Labs collected and sent; Complete Time: 06:29 jr8 08/28 06:06 Order name: Urine Dipstick-Ancillary (obtain specimen); Complete Time: 07:06 8 08/28 07:37 Order name: CT Abd/Pelvis - W/Contrast; Complete Time: 09:36 jr8 Administered Medications: 06:49 Drug: morphine 4 mg Route: IVP; Site: right antecubital; ao 07:39 Follow up: Response: No adverse reaction em 06:49 Drug: Zofran 4 mg Route: IVP; Site: right antecubital; ao 07:39 Follow up: Response: No adverse reaction em 07:50 Drug: morphine 4 mg Route: IVP; Site: right antecubital; em 09:31 Follow up: Response: No adverse reaction; Pain is decreased em Disposition: 08/28/17 09:37 Discharged to Home. Impression: Abdominal and pelvic pain. - Condition is Stable. - Discharge Instructions: Abdominal Pain, Adult. - Prescriptions for Tramadol 50 mg Oral Tablet - take 1 tablet by ORAL route every 8 hours as needed; 12 tablet. - Medication Reconciliation Form, Thank You Letter, Antibiotic Education, Prescription Opioid Use form. - Follow up: Private Physician; When: 2 - 3 days; Reason: Recheck today's complaints, Continuance of care, Re-evaluation by your physician. - Problem is new. - Symptoms have improved. Addendum: 09/19/2017 01:00 Co-signature as Attending Physician, Sung Lawrence MD available for consultation at p s1 all times. . Signatures: Dispatcher [employer] EDAllan Malik, THERMIT WELDING MACHINE OPERATOR THERMIT WELDING MACHINE OPERATOR em Naga Elizalde PA PA jr8 Perry Joel, RN RN Sung Lepe MD MD ps1 Salazar, Brittany RN RN bs1 Corrections: (The following items were deleted from the chart) 08/28 10:09 09:37 08/28/2017 09:37 Discharged to Home. Impression: Abdominal and pelvic pain. em Condition is Stable. Forms are Medication Reconciliation Form, Thank You Letter, Antibiotic Education, Prescription Opioid Use. Follow up: Private Physician; When: 2 - 3 days; Reason: Recheck today's complaints, Continuance of care, Re-evaluation by your physician. Problem is new. Symptoms have improved. jr8
--- NOTE | 2017-08-28 09:38 | ER ---
Nurse's Notes [facility] Name: Tami Oliver Age: 47 yrs Sex: Female : 1970 Arrival Date: 08/28/2017 Time: 05:27 Bed 20 Private MD: Diagnosis: Abdominal and pelvic pain Presentation: 08/28 05:41 Presenting complaint: Patient states: Abdominal pain that comes and goes for the past ao few months. Yesterday before patient when to bed the pain got worst. Patient describes pain as tearing her intestines. Pain is 10/10 in a pain scale. Transition of care: patient was not received from another setting of care. Onset of symptoms is unknown. Initial Sepsis Screen: Does the patient meet any 2 criteria? No. Patient's initial sepsis screen is negative. Does the patient have a suspected source of infection? No. Patient's initial sepsis screen is negative. Care prior to arrival: None. 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 - Social history:: Smoking status: Patient/guardian denies using tobacco. Screenin:46 Abuse screen: Denies threats or abuse. Denies injuries from another. Nutritional ao screening: No deficits noted. Tuberculosis screening: No symptoms or risk factors identified. Fall Risk None identified. Assessment: 06:00 General: Appears in no apparent distress. uncomfortable, Behavior is calm, cooperative, tl2 appropriate for age. Pain: Complains of pain in abdomen Pain currently is 10 out of 10 on a pain scale. Neuro: Level of Consciousness is awake, alert, obeys commands, Oriented to person, place, time, situation, Appropriate for age Moves all extremities. Speech is normal, Facial symmetry appears normal. Cardiovascular: Patient's skin is warm and dry. Respiratory: Airway is patent Respiratory effort is even, unlabored, Respiratory pattern is regular, symmetrical. GI: Bowel sounds present X 4 quads. Abd is soft and non tender X 4 quads. : No signs and/or symptoms were reported regarding the genitourinary system. EENT: No signs and/or symptoms were reported regarding the EENT system. Derm: No signs and/or symptoms reported regarding the dermatologic system. Musculoskeletal: No signs and/or symptoms reported regarding the musculoskeletal system. 07:10 General: Appears in no apparent distress. uncomfortable, Behavior is calm, cooperative. em Pain: Complains of pain in left lower quadrant Quality of pain is described as "someone tearing my insides". Neuro: Level of Consciousness is awake, alert, obeys commands, Oriented to person, place, time, situation. Cardiovascular: Capillary refill < 3 seconds Patient's skin is warm and dry. Respiratory: Airway is patent Respiratory effort is even, unlabored, Respiratory pattern is regular, symmetrical. GI: Abdomen is obese, Bowel sounds present X 4 quads. Abd is soft and non tender X 4 quads. Reports diarrhea, Patient currently denies nausea, vomiting. : No signs and/or symptoms were reported regarding the genitourinary system. EENT: No signs and/or symptoms were reported regarding the EENT system. Derm: Skin is intact, Skin is pink, warm \\T\\ dry. Musculoskeletal: Range of motion: intact in all extremities. 07:15 Reassessment: Patient appears in no apparent distress at this time. No changes from iw previously documented assessment. I agree with above assessment by Allan Mclean LVN. 08:18 Reassessment: Patient appears in no apparent distress at this time. Patient and/or em family updated on plan of care and expected duration. Pain level reassessed. Patient is alert, oriented x 3, equal unlabored respirations, skin warm/dry/pink. 09:30 Reassessment: Patient appears in no apparent distress at this time. Patient and/or em family updated on plan of care and expected duration. Pain level reassessed. Patient is alert, oriented x 3, equal unlabored respirations, skin warm/dry/pink. Patient states feeling better. Patient states symptoms have improved. Vital Signs: 05:36 Pulse 90; Resp 20; Temp 98.1(O); Pulse Ox 98% on R/A; Weight 135.62 kg; Height 5 ft. 4 ao in. (162.56 cm); Pain 10/10; 05:45 BP 155 / 87; ao 07:31 BP 142 / 70; Pulse 79; Resp 16; Pulse Ox 95% on R/A; Pain 10/10; em 08:45 BP 135 / 71; Pulse 80; Resp 18; Pulse Ox 99% on R/A; Pain 10/10; em 10:05 BP 135 / 68; Pulse 68; Resp 16; Temp 97.8; Pulse Ox 98% on R/A; Pain 8/10; em 05:36 Body Mass Index 51.32 (135.62 kg, 162.56 cm) ao ED Course: 05:27 Patient arrived in ED. ds1 05:41 Perry Joel, RN is Primary Nurse. ao 05:45 Triage completed. ao 05:45 Arm band placed on right wrist. Patient placed in an exam room, on a stretcher, on ao quality assurance monitor chassis, on pulse oximetry, Patient notified of wait time. 06:05 Naga Elizalde PA is PHCP. jr8 06:05 Sung Lawrence MD is Attending Physician. jr8 06:29 Inserted saline lock: 20 gauge in right antecubital area, using aseptic technique. ao Blood collected. 07:13 Report given to ADRIANNA Camara. tl2 07:14 Patient has correct armband on for positive identification. Pulse ox on. NIBP on. tl2 08:19 No provider procedures requiring assistance completed. em 09:07 CT Abd/Pelvis - W/Contrast In Process Unspecified. EDMS 10:04 IV discontinued, intact, bleeding controlled, No redness/swelling at site. Pressure em dressing applied. Administered Medications: 06:49 Drug: morphine 4 mg Route: IVP; Site: right antecubital; ao 07:39 Follow up: Response: No adverse reaction em 06:49 Drug: Zofran 4 mg Route: IVP; Site: right antecubital; ao 07:39 Follow up: Response: No adverse reaction em 07:50 Drug: morphine 4 mg Route: IVP; Site: right antecubital; em 09:31 Follow up: Response: No adverse reaction; Pain is decreased em Outcome: 09:37 Discharge ordered by . jr8 10:03 Discharged to home via wheelchair. em 10:03 Condition: good 10:03 Discharge instructions given to patient, Instructed on discharge instructions, follow up and referral plans. medication usage, Demonstrated understanding of instructions, follow-up care, medications, Prescriptions given X 1. 10:09 Patient left the ED. em Signatures: Dispatcher [employer] EDAllan Malik, ROOF TRUSS DETAILER ROOF TRUSS DETAILER Genesis Hobson ds1 Marie Noonan, RN RN iw Naga Elizalde PA PA jr8 Perry Joel RN RN ao Vivi Hernandez RN RN tl2 Sandra Bass RN RN bs1 Corrections: (The following items were deleted from the chart) 05:46 05:36 Resp 20bpm; Temp 98.1F Oral; 135.62 kg; Height 5 ft. 4 in.; BMI: 51.3; bs1 ao
== END 2017-08-28 10:09 | disposition home or self-care (01) ==
LOC: ER 05:20
DX: R10.2 Pelvic and perineal pain (principal); I10 Essential (primary) hypertension; E11.9 Type 2 diabetes mellitus without complications; Z79.4 Long term (current) use of insulin; Z88.0 Allergy status to penicillin; Z88.1 Allergy status to other antibiotic agents
CPT/HCPCS: 36415; 74177; 80048; 80076; 81003; 81025; 83690; 85025; 96374; 96375; 99284; Q9967